=== PATIENT | male | born 1945 | race Caucasian/White ===

== ENCOUNTER 2017-11-06 08:52 | Day surgery (SDC) | payer MEDICARE, OTHER ==
[2017-10-30 09:40] LABS: HEMATOCRIT 41.1 % (37.9-51.0); HEMOGLOBIN 14.5 g/dL (13.5-17.0); MEAN CORPUSCULAR HEMOGLOBIN 32.7 pg (27.0-33.4); MEAN CORPUSCULAR HGB CONC 35.4 g/dL (32.0-36.0); MEAN CORPUSCULAR VOLUME 92 fl (80-97); PLATELET COUNT 165 10^3/uL (150-450); RED BLOOD COUNT 4.45 10^6/uL (4.35-5.55); RED CELL DISTRIBUTION WIDTH 12.9 % (11.5-14.0); WHITE BLOOD COUNT 6.4 10^3/uL (4.0-10.5)
[2017-10-30 10:07] LABS: ANION GAP 12 (5-19); BLOOD UREA NITROGEN 26 mg/dL (7-20); CALCIUM 10.8 mg/dL (8.4-10.2); CARBON DIOXIDE 32 mmol/L (22-30); CHLORIDE 100 mmol/L (98-107); GLUCOSE 262 mg/dL (75-110); POTASSIUM 4.9 mmol/L (3.6-5.0); SODIUM 143.7 mmol/L (137-145)
--- NOTE | 2017-10-30 10:35 | EKG REPORT ---
SEVERITY:- ABNORMAL ECG - SINUS RHYTHM PROBABLE INFERIOR INFARCT, AGE INDETERMINATE : Confirmed by: Adalid Ac 30-Oct-2017 10:34:15
[~2017-11-06 08:52] MED LIST: ACETAMINOPHEN 325 MG TABLET PO PRN; CEFAZOLIN 1 GM/D5W RTU 1 GM/50 ML RTUPB IV PRN; LACTATED RINGERS 1000 ML IV PRN; LIDOCAINE 0.5% INJ-PF (5 MG/ML) 50 ML SDV SUBCUT PRN
[2017-11-06] MEDS ORDERED: NEOSTIGMINE METHYLSULFATE 10 MG/10 ML VIAL ONE (10:58)
[2017-11-06] MEDS ORDERED: LIDOCAINE 2% INJ-PF (20 MG/ML) 2 ML AMPUL ONE (10:58)
[2017-11-06] MEDS ORDERED: SUCCINYLCHOLINE CHLORIDE INJ 200 MG/10 ML VIAL ONE (10:58)
[2017-11-06] MEDS ORDERED: VECURONIUM BROMIDE INJ 10 MG VIAL IV ONE (10:58)
[2017-11-06] MEDS ORDERED: GLYCOPYRROLATE INJ 0.4 MG/2 ML VIAL ONE (10:58)
[2017-11-06] MEDS ORDERED: DEXAMETHASONE SOD PHOSPHATE INJ 4 MG/1 ML VIAL ONE (10:58)
[2017-11-06] MEDS ORDERED: ONDANSETRON HCL INJ/PF 4 MG/2 ML SDV ONE (10:58)
--- NOTE | 2017-11-06 11:59 | XCELERA REPORT ---
[address] [address] Transthoracic Echocardiogram Report Name: FRANKO MAXWELL SR Age: 72 yrs Gender: Male : 1945 Patient Status: Outpatient Patient Location: [facility] Study Date: 11/06/2017 10:36 AM Height: 69 in Weight: 206 lb BSA: 2.1 m2 Procedure: A two-dimensional transthoracic echocardiogram with color flow and Doppler was performed. Study Quality: Good. Reason For Study: PREOP / Abnormal EKG / MURMUR History: PREOP / Abnormal EKG / MURMUR. Ordering Physician: SCOTT UQIGLEY Performed By: Hilda Heredia Interpretation Summary The left ventricle is normal in size. There is normal left ventricular wall thickness. LV EF is > than 60% Left ventricular systolic function is normal. Doppler measurements suggest impaired left ventricular relaxation, which is associated with grade I/IV or mild diastolic dysfunction The left ventricular wall motion is normal. There is no thrombus. There is no ventricular septal defect visualized. The right ventricle is normal in size and function. The right atrium is normal. The left atrial size is normal. There is no evidence of mitral valve prolapse. There is no vegetation seen on the mitral valve. There is no mitral valve stenosis. There is a trace amount of mitral regurgitation There is no aortic valvular vegetation. There is no aortic valve stenosis There is no LVOT obstruction. No aortic regurgitation is present. There is no tricuspid stenosis. There is a trace amount of tricuspid regurgitation Right ventricular systolic pressure is normal. RVSP is 26 mm of Hg , with RA mean of 5. There is no pericardial effusion. MMode/2D Measurements & Calculations RVDd: 3.3 cm LVIDd: 5.0 cm FS: 28.7 % Ao root diam: 3.5 cm IVSd: 0.92 cm LVIDs: 3.6 cm EDV(Teich): 117.2 ml LVPWd: 0.95 cmESV(Teich): 52.6 ml Ao root area: 9.5 cm2 EF(Teich): 55.1 % LA dimension: 3.9 cm LVOT diam: 2.1 cm LVOT area: 3.5 cm2 Doppler Measurements & Calculations MV E max viridiana: MV P1/2t max viridiana: Ao V2 max: LV V1 max P.9 cm/sec 51.3 cm/sec 141.2 cm/sec 3.2 mmHg MV A max viridiana: MV P1/2t: 41.6 msec Ao max PG: LV V1 max: 99.9 cm/sec MVA(P1/2t): 5.3 cm2 8.0 mmHg 89.1 cm/sec MV E/A: 0.51 MV dec slope: NIKOLAI(V,D): 2.2 cm2 361.4 cm/sec2 PA V2 max: TR max viridiana: 72.1 cm/sec 225.9 cm/sec PA max PG: TR max P.4 mmHg 2.1 mmHg Left Ventricle The left ventricle is normal in size. There is normal left ventricular wall thickness. LV EF is > than 60%. Left ventricular systolic function is normal. Doppler measurements suggest impaired left ventricular relaxation, which is associated with grade I/IV or mild diastolic dysfunction. The left ventricular wall motion is normal. There is no thrombus. There is no ventricular septal defect visualized. Right Ventricle The right ventricle is normal in size and function. Atria The right atrium is normal. The left atrial size is normal. The interatrial septum is intact with no evidence for an atrial septal defect. Mitral Valve There is no evidence of mitral valve prolapse. There is no vegetation seen on the mitral valve. There is no mitral valve stenosis. There is a trace amount of mitral regurgitation. Aortic Valve There is no aortic valvular vegetation. There is no aortic valve stenosis. There is no LVOT obstruction. No aortic regurgitation is present. Tricuspid Valve There is no tricuspid stenosis. There is a trace amount of tricuspid regurgitation. Right ventricular systolic pressure is normal. RVSP is 26 mm of Hg , with RA mean of 5. Pulmonic Valve There is no pulmonic valvular stenosis. There is no pulmonic valvular regurgitation. Great Vessels The aortic root is normal size. Effusions There is no pericardial effusion. : SCOTT QUIGLEY > Lilliam Gallegos
[2017-11-06] MEDS ORDERED: BUPIVACAINE HCL 0.25 % INJ/PF (2.5 MG/1 ML) 30 ML VIAL ONE (14:01)
--- NOTE | 2017-11-06 14:18 | PDOC DISCHARGE SUMMARY ---
Discharge Summary (SDC) - Discharge Final Diagnosis: umbilical hernia Date of Surgery: 11/06/17 Discharge Date: 11/06/17 Condition: Stable Treatment or Instructions: [facility] [address] [place] [id number] Discharge Instructions: Laparoscopic Surgery 1. General Information: a. DO NOT DRIVE a car or operate dangerous machinery for 3-4 days or while taking narcotic pain pills. b. DO NOT consume alcohol, tranquilizers, sleeping medications or any non- prescribed medications for 24 hours unless approved by your doctor or as long as taking narcotic prescription medications. c. DO NOT make important decisions or sign any important papers for the first 24 hours after surgery. d. When discharged home the same day of surgery have a responsible person with you for the first night. 2. Activity Restrictions: 8 weeks. a. NO heavy lifting, straining abdominal muscles, bending over a lot, yard work, house work, or sports for [address] for 3-4 days. c. It is fine to go for walks, up and down steps, ride in a car. d. Elevate your head when sleeping/resting. 3. Treatment: a. You may shower 24 hours after surgery, no baths or swimming for 2 weeks. Remove band-aids or dressings before shower but leave paper strips (steri-strips ) on the skin to fall off on their own. If still on at postoperative visit they will be removed then. b. Drainage of fluid or blood is not unusual from an incision. If occurs, you can clean with peroxide and cotton ball daily and cover with dry gauze until the wound seals. c. If a lot of bleeding occurs, you can hold pressure with a gauze or cloth over the site for 10 minutes and it will usually stop. If bleeding continues you will need to call for possible evaluation in office or emergency room. 4. Medications: a. __Toradol__ may be taken for pain as needed, one or two tablets every 6 hours. You may switch to plain Tylenol as you transition from the narcotic. b. You should resume all normal medications unless a change is specified by your doctors. 5. Diet: Begin with clear liquids and may progress to your normal diet if not nauseated. No high fat, high protein foods the day of surgery. 6. The following may occur after laparoscopic surgery: a. Shoulder or upper back ache from retained gas that should resolve in 1-2 days b. Soreness and bruising at incision sites will resolve with time. c. Scrotal swelling (labia in women) and bruising is often seen after hernia surgery. d. Sore throat e. Fatigue may last days to weeks. f. Difficulty urinating may occur and may need to come into emergency room for urinary catheter placement. 7. Notify Physician If: a. Worsening or pain not improved with pain medication b. Persistent nausea and vomiting c. Fever above 101 d. Persistent bleeding or swelling at operative site e. Unable to urinate and uncomfortable bladder 6-8 hours after surgery 8..Follow Up Care: a. Schedule a follow up appointment with your doctor for 2 weeks. In the event of any postoperative problems or questions or you may call the office during business hours or the On-Call physician evenings and weekends at [facility]. [facility] I understand the instructions for my postoperative care as described above and a copy has been given to me. Patient/Significant Other Witness Date Prescriptions: Ketorolac Tromethamine [Toradol 10 mg Tablet] 10 mg PO Q6HP PRN #25 tablet PRN Reason: Discharge Diet: As Tolerated Discharge Activity: No Lifting Over 10 Pounds, No Lifting/Push/Pulling, Walk Frequently Report the Following to Your Physician Immediately: Nausea, Vomiting, Fever over 101 Degrees, Drainage-Foul Smelling
[2017-11-06] MEDS ORDERED: MIDAZOLAM 2 MG/2 ML INJ ONE (14:25)
[2017-11-06] MEDS ORDERED: PROPOFOL INJ 200 MG/20 ML VIAL IV ONE (14:25)
[2017-11-06] MEDS ORDERED: FENTANYL CITRATE INJ/PF 100 MCG/2 ML AMPUL ONE (14:25)
[2017-11-06] MEDS ORDERED: ACETAMINOPHEN 100 ML IV ONE (14:25)
[2017-11-06] MEDS ORDERED: HYDROMORPHONE HCL INJ/PF 2 MG/ML AMPULE ONE (14:26)
[2017-11-06] MEDS ORDERED: FENTANYL CITRATE INJ/PF 100 MCG/2 ML AMPUL IV PRN ×3 (15:33)
[2017-11-06] MEDS ORDERED: DIPHENHYDRAMINE HCL 50 MG/ML VIAL IV PRN (15:33)
[2017-11-06] MEDS ORDERED: PROMETHAZINE HCL INJ 25 MG/1 ML VIAL IV PRN (15:33)
[2017-11-06] MEDS ORDERED: MEPERIDINE HCL/PF INJ 25 MG/1 ML DISP.SYRIN IV PRN (15:33)
[2017-11-06] MEDS ORDERED: MORPHINE SULFATE 10 MG/ML INJ IV PRN (15:33)
--- NOTE | 2017-11-06 16:21 | Operative Report ---
Operative Report DATE OF SURGERY: 11/06/17 PREOPERATIVE DIAGNOSIS: Umbilical hernia POSTOPERATIVE DIAGNOSIS: Same OPERATION: Primary laparoscopic repair of umbilical hernia, with intraperitoneal placement of Covidien 12 cm parietex mesh SURGEON: SCOTT QUIGLEY 1ST NET DEVELOPER SOFTWARE ENGINEER C: HEIDY WOLFF ANESTHESIA: GA TISSUE REMOVED OR ALTERED: None COMPLICATIONS: None ESTIMATED BLOOD LOSS: Scant INTRAOPERATIVE FINDINGS: See below PROCEDURE: Taking the preop holding area to the main operating room where general anesthesia was induced. Because the patient could not void prior to the operation, Awan catheter was inserted uneventfully. Clear yellow urine returned. The catheter was left in position. The abdomen was exposed arms abducted, and the abdomen prepped and draped in sterile fashion with Betadine. Instrumentation set up for laparoscopic ventral wall hernia repair. Surgical plan surgical timeout were conducted. Termination of the intra-abdominal wall multiple scars consistent with previous robotic surgery. Of note there was a umbilical transverse incision actually 5 cm long. A suitable place for initiation of the peritoneum was selected in the left upper quadrant. It was anesthetized with quarter percent Marcaine geovany made in the skin with 11 blade, and Veress needle inserted the peritoneal cavity. Pneumoperitoneum was established. Veress needle was removed, and a 5 mm ports inserted a 5 mm flexible scope was inserted. Under direct visualization 2 additional 5 mm ports were placed one in the left lower quadrant, and a third in the right mid field at the site of her previous laparoscopy port scar. Findings are significant for greater omentum stuck to the anterior abdominal wall specifically the inside of the hernia. The omentum was taken down using LigaSure device. This was accomplished, we took down some redundant retroperitoneal tissue along the inferior margin of the hernia edge. We now evaluated the hernia. It was nearly perfectly circumferential approximately 4 cm in diameter. We chose to close the hernia transversely with 3 #1 PDS sutures all passed trans-abdominally by making a geovany in the skin at the center of the umbilicus, and using the disposable suture passer, we placed 4 figure-of- eight sutures position. Under a minimal to mild amount of tension, we were able to bring the fascial defect closed transversely. Knots were secured after decompressing the pneumoperitoneum. The result was a closure of the hernia using the after mentioned sutures. Photos were taken. We now brought onto the field a non- 12 cm Covidien mesh PArietex model. Sutures were secured at the 12, 3, 6, 9 o'clock position using 0 PDS suture. Mesh was moistened brought to the intra-abdominal wall through 1 of the port sites unfolded and brought up to the anterior abdominal wall using the disposable suture passer. The mesh was further secured to the anterior peritoneal lining with approximately 24 min sure tack variety. Conclusion photos demonstrated appropriate fixation of the mesh to the intra-abdominal wall. There was minimal bleeding during fixation at the o'clock position but this abated. No hematoma resulted. We inspected the viscera and there is no evidence of injury. There is no mechanical bleeding. We felt the operation was complete. Sponge and needle counts are correct. All ports removed under direct visualization, pneumoperitoneum evacuated, and wounds closed with 3-0 Vicryl benzoin Steri- Strips. patient was extubated, taken to recovery room in stable condition. The physician photographer assistant, Ms. Armstrong, provided assistance during this case by: Assisting and port insertion, retracting tissue, instillation of local anesthesia and closure of skin incisions.
--- NOTE | 2017-11-06 16:22 | PDOC DISCHARGE SUMMARY ---
Discharge Summary (SDC) - Discharge Final Diagnosis: Abdominal wall hernia Date of Surgery: 11/06/17 Discharge Date: 11/06/17 Condition: Good Treatment or Instructions: [facility] [address], [place] [address] Discharge Instructions: Laparoscopic Surgery 1. General Information: a. DO NOT DRIVE a car or operate dangerous machinery for 3-4 days or while taking narcotic pain pills. b. DO NOT consume alcohol, tranquilizers, sleeping medications or any non- prescribed medications for 24 hours unless approved by your doctor or as long as taking narcotic prescription medications. c. DO NOT make important decisions or sign any important papers for the first 24 hours after surgery. d. When discharged home the same day of surgery have a responsible person with you for the first night. 2. Activity Restrictions: 8 weeks. a. NO heavy lifting, straining abdominal muscles, bending over a lot, yard work, house work, or sports for [address] NOT drive for 3-4 days. c. It is fine to go for walks, up and down steps, ride in a car. d. Elevate your head when sleeping/resting. 3. Treatment: a. You may shower 24 hours after surgery, no baths or swimming for 2 weeks. Remove band-aids or dressings before shower but leave paper strips (steri-strips ) on the skin to fall off on their own. If still on at postoperative visit they will be removed then. b. Drainage of fluid or blood is not unusual from an incision. If occurs, you can clean with peroxide and cotton ball daily and cover with dry gauze until the wound seals. c. If a lot of bleeding occurs, you can hold pressure with a gauze or cloth over the site for 10 minutes and it will usually stop. If bleeding continues you will need to call for possible evaluation in office or emergency room. 4. Medications: a. __Toradol__ may be taken for pain as needed, one or two tablets every 6 hours. You may switch to plain Tylenol as you transition from the narcotic. b. You should resume all normal medications unless a change is specified by your doctors. 5. Diet: Begin with clear liquids and may progress to your normal diet if not nauseated. No high fat, high protein foods the day of surgery. 6. The following may occur after laparoscopic surgery: a. Shoulder or upper back ache from retained gas that should resolve in 1-2 days b. Soreness and bruising at incision sites will resolve with time. c. Scrotal swelling (labia in women) and bruising is often seen after hernia surgery. d. Sore throat e. Fatigue may last days to weeks. f. Difficulty urinating may occur and may need to come into emergency room for urinary catheter placement. 7. Notify Physician If: a. Worsening or pain not improved with pain medication b. Persistent nausea and vomiting c. Fever above 101 d. Persistent bleeding or swelling at operative site e. Unable to urinate and uncomfortable bladder 6-8 hours after surgery 8..Follow Up Care: a. Schedule a follow up appointment with your doctor for 2 weeks. In the event of any postoperative problems or questions or you may call the office during business hours or the On-Call physician evenings and weekends at [facility]. [facility] I understand the instructions for my postoperative care as described above and a copy has been given to me. Patient/Significant Other Witness Date Prescriptions: Ketorolac Tromethamine [Toradol 10 mg Tablet] 10 mg PO Q6HP PRN #25 tablet PRN Reason: Discharge Diet: As Tolerated Discharge Activity: No Lifting Over 10 Pounds, No Lifting/Push/Pulling, Walk Frequently Home Care Assistance: None Needed Report the Following to Your Physician Immediately: Nausea, Vomiting, Fever over 101 Degrees, Drainage-Foul Smelling
[2017-11-06] MEDS ORDERED: ONDANSETRON HCL INJ/PF 4 MG/2 ML SDV IV PRN (16:23)
[2017-11-06] MEDS ORDERED: OXYCODONE-ACETAMINOPHEN 5-325 MG TABLET PO PRN (16:25)
[2017-11-06] MEDS: FENTANYL CITRATE INJ/PF 100 MCG/2 ML AMPUL ONE ×4 (16:40→16:55)
[2017-11-06] MEDS: HYDROMORPHONE HCL INJ/PF 2 MG/ML AMPULE ONE ×3 (17:15→17:35)
--- NOTE | 2017-11-06 20:43 | CONSULTATION REPORT E ---
Consultation Report NAME: FRANKO MAXWELL : 1945 AGE: 72Y DATE: 11/06/2017 TO: LO WRIGHT M.D. FROM: SCOTT QUIGLEY M.D. Requesting Physician REASON FOR CONSULTATION: Evaluate the patient for preoperative cardiac assessment for patient with history of diabetes mellitus, hypertension, and regards possible abnormal EKG and with a heart murmur scheduled for umbilical hernia surgery under general anesthesia. HISTORY OF PRESENT ILLNESS: The patient is a 72-year-old male with a known history of hypertension and history of diabetes mellitus. As per the family the diabetes mellitus was not well-controlled with earlier, a few months ago, hemoglobin A1c was in the 9+ range and subsequently recently has come to 7.6. He also has a history of hypertension. He denies any history of chest pain or discomfort. There is no history of congestive heart failure. No history of coronary artery disease, OK, or anginal symptoms. No history of palpitations. No history of dizziness or syncope. No history of leg edema. No history of TIA or CVA. Note that the patient is very active without any symptoms and has a good effort tolerance. PAST MEDICAL AND SURGICAL HISTORY: Positive for a history of hypertension, history of diabetes mellitus. 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 He also has a history of arthritis. He also has a history of cancer of the prostate, cured with surgery. Other history includes bilateral partial knee replacements, bone graft right wrist and prostate surgery. FAMILY HISTORY: Positive for father having premature coronary artery disease at the age of 49. The patient's father not only had hypertension and diabetes but also was a smoker. SOCIAL HISTORY: The patient does not smoke. There is no history of EtOH abuse. DISPOSITION: The patient is a full code. His his the surrogate healthcare decision maker. REVIEW OF SYSTEMS: CONSTITUTIONAL: Denies any fever, chills, or rigors. HEAD: Denies any history of headaches or head injury. There is no dizziness. EYES: No history of amblyopia or diplopia. No history of amaurosis fugax. EARS: No history of hearing loss. No history of tinnitus. No history of recurrent ear infections. NOSE: No history of hay fever. No history of nosebleeds. No history of inflammation of the nasal mucus membrane. No nasal polyps. MOUTH: No history of altered taste sensation. No history of ulcers in the mouth. No history of bleeding from the gums. THROAT: No odynophagia or dysphagia. No history of recurrent sore throats. SKIN: No history of pruritus. No history of skin cancer. No history of psoriasis. No history of petechiae or ecchymosis. No history of yellowish discoloration of the skin. NECK: No history of symptoms of c-spine arthritis. No history of goiter. LUNGS: No history of asthma or COPD. No history of recent cough or symptoms of upper or lower respiratory tract infections. No history of wheezing. No history of sleep apnea. No history of pulmonary embolism. No history of wheezing. No history of pleuritic chest pain. No hemoptysis. CARDIAC: History of hypertension, well-controlled as per patient. No history of congestive heart failure. No history of coronary artery disease. No history of OK or anginal symptoms. No history of PND, orthopnea, palpitations, dizziness, or syncope or near syncope. No leg edema. ENDOCRINE: History of diabetes mellitus, not well-controlled as per the family but no complications of diabetes. No polydipsia or polyuria. No history of heat or cold intolerance. No history of thyroid disease. MUSCULOSKELETAL: There is a history of arthritis present but no history of collagen vascular. RENAL: No history of chronic kidney disease. No history of hematuria, pyuria, or dysuria. No symptoms of UTI. GASTROINTESTINAL: No history of GERD. No history of peptic ulcer disease. The patient is here for umbilical hernia surgery. No history of jaundice. No history of cirrhosis. No history of fatty food intolerance. No history of GI bleed. No history of altered bowel movements. CENTRAL NERVOUS SYSTEM: No history of TIA or CVA. No history of headaches, migraines, or seizures. PSYCHIATRIC: No history of anxiety or depression. No history of suicidal ideation. No history of homicidal ideation. VASCULAR: No history of calf or buttock claudication. No history of peripheral vascular disease. Remote history of DVT with no recurrence. HEMATOLOGICAL: No history bleeding diathesis. No history of clotting disorders. MEDICATIONS: His medications are; 1. Toradol 10 mg p.o. q.6 hours p.r.n. 2. He is on calcium citrate/vitamin D3 one tablet p.o. daily. 3. He is on Tradjenta 5 mg 1 tablet daily. 4. He is on lisinopril/hydrochlorothiazide 1 p.o. daily. 5. Metformin 500 mg 2 tablets p.o. b.i.d. 6. Vitamin E 1000 units capsule 1 tablet p.o. daily. ALLERGIES: The patient has no known allergies. PHYSICAL EXAMINATION: GENERAL: On examination the patient is slightly obese in no acute distress. He is awake, alert, oriented x3. He is well-groomed. VITAL SIGNS: He is afebrile with a temperature of 97.7 degrees Fahrenheit, pulse is 80 beats per minute, blood pressure 139/68, respirations are 14 per minute, O2 saturations are 100% on room air. HEENT: Head is atraumatic, normocephalic. Eyes: Pupils are equal, round and regular, reactive to light and accommodation. Extraocular movements are normal. There is no conjunctival pallor. There is no scleral icterus. Ears: Tympanic membranes are intact, external auditory canals are clear. Nose: There is no deviated nasal septum. There is no inflammation of the nasal mucous membrane. There are no nasal polyps. Mouth: Mucous membranes of the mouth are moist. Tongue is moist. There are no ulcers. There is no bleeding from the gums. Throat: There is no redness of the oropharynx. There are no exudates in the throat. SKIN: There are no skin rashes. There is no petechiae or ecchymosis. There are no skin lesions or skin rashes. NECK: Supple. There is no JVD. There is no lymphadenopathy. There is no goiter. Carotids are equal. There is no bruit. Trachea is central. LUNGS: Clear to auscultation and percussion. There is no chest wall tenderness. HEART: S1 and S2 is heard. There is no S3 gallop. There is no S4 gallop. There is a systolic murmur in the left sternal border and the apex. There is no rub. ABDOMEN: Soft, nontender. There is no hepatosplenomegaly. Bowel sounds are well-heard. There are no tender areas or masses. There is no rebound, guarding, or rigidity. The patient does have an umbilical hernia. EXTREMITIES: Femorals are well-felt. Leg pulses are well-felt. There is no pedal edema. There is no cyanosis or clubbing. There is no DVT or cellulitis. There is no calf tenderness. CENTRAL NERVOUS SYSTEM: The patient is conscious, awake, alert, oriented x3 with no focal deficits. PSYCHIATRIC: The patient's judgment and insight are intact. His affect is normal. DIAGNOSTIC STUDIES: The patient's white count on 10/30/2017 was 6400, hemoglobin was 14.5, hematocrit is 41.1, and the platelet count is 165,000. On 10/30/2017 the patient's sodium was 143.7, potassium 4.9, chloride 100, CO2 of 32, BUN 26, creatinine 0.99, GFR is greater than 60. His glucose is 262. His calcium is 10.8. Subsequent blood sugar was 195. His repeat potassium was 3.9. The patient's EKG shows sinus rhythm, reported as possible/probable inferior infarct age indeterminant. In view of this and the patient's systolic murmur an echocardiogram was done. The echo showed the left ventricle is of normal size. There was no LVH. There was normal systolic function of the LV with the LV ejection fraction of 60%. There was impaired left ventricular relaxation which is grade I/IV or mild diastolic dysfunction. The left ventricular wall motion was normal. There is no thrombus. There is no ventriculoseptal defect visualized. The right ventricle is normal in size and function. The right atrium is normal. The left atrial size is normal. There is no evidence of mitral valve prolapse. There is no vegetation seen on the mitral valve. There is no mitral valve stenosis. There is trace of mitral regurgitation. There is no aortic valve vegetation. There is no aortic valve stenosis. There is no LVOT obstruction. There is no aortic regurgitation present. There is trace amount of tricuspid regurgitation. Right ventricular systolic pressure is normal with a right ventricular systolic pressure of 26 mmHg. There is no pericardial effusion. IMPRESSION: 1. Umbilical hernia, for surgery. 2. Hypertension, well-controlled. 3. Diabetes mellitus, not well-controlled as per the family's history but without any complications. 4. The systolic murmur is a flow murmur. 5. Preoperative risk assessment for his proposed umbilical hernia under general anesthesia. Note that the patient would be at an acceptable/mild cardiac risk for this procedure under general anesthesia. The echo findings and the EKG findings and the physical findings were discussed with the patient and the patient's family in-depth. Also discussed with the surgicalist, Dr. Quigley, and also discussed over the telephone with the anesthesiologist. In view of the patient's age, presence of multiple risk factors including diabetes mellitus, hypertension, and premature family history of coronary artery disease and ? lipid status, would recommend that the patient have an outpatient IV Lexiscan Cardiolite stress test. I have given the patient and the family my cell phone number to call me if there is any problem and if the patient wishes he can follow up with me for IV Lexiscan Cardiolite stress test. Note that the patient was seen at 12:15 p.m. and 45 minutes spent on this patient with more than 50% of the time spent on direct patient care. His medications have been reviewed. Discussed the case, as mentioned earlier, with the other physicians involved in the case. Note in view of the patient's EKG reading of indeterminant old inferior wall OK, medical decision making was of high complexity. We will follow the patient as an outpatient if the patient and the family so desire. Unless there should be any untoward complication which I do not foresee the patient can be discharged. DICTATING PHYSICIAN: LO WRIGHT M.D. [id number] PHY#: [id number] ID: [id number] JOB#: [id number] ACCT: [id number] cc:LO WRIGHT M.D. >
[2017-11-06 20:45] VITALS: BP 110/71
== END 2017-11-06 19:55 | disposition home or self-care (01) ==
LOC: OROUT 08:52
PROVIDERS: ATTEND Surgery
PROC: 0WUF4JZ Supplement Abdominal Wall with Synthetic Substitute, Percutaneous Endoscopic Approach (ICD-10-PCS; principal; 2017-11-06 11:00)
DX: K42.9 Umbilical hernia without obstruction or gangrene (principal); I10 Essential (primary) hypertension; M19.90 Unspecified osteoarthritis, unspecified site; E11.9 Type 2 diabetes mellitus without complications; Z96.653 Presence of artificial knee joint, bilateral; R01.1 Cardiac murmur, unspecified; Z79.899 Other long term (current) drug therapy; Z79.84 Long term (current) use of oral hypoglycemic drugs; Z79.4 Long term (current) use of insulin; Z85.46 Personal history of malignant neoplasm of prostate; Z86.718 Personal history of other venous thrombosis and embolism
CPT/HCPCS: 93005; 36415 ×2; 82962; 84132; 85027; 80048; 93306; 93010; 49652; C1781; J2250; J0690; J1100; J3010; J3490 ×2; A9270; J1170; J0330; J2405; J2704; J0131; 750